=== PATIENT | female | born 1970 | race Two or more races ===

== ENCOUNTER 2022-08-31 19:38 | Emergency (ER) | payer OTHER ==
[~2022-08-31] VITALS: Ht 152.4 cm; Wt 54.4 kg
[2022-08-31] MEDS ORDERED: DICLOFENAC SODI75 MG PO (22:51)
== END 2022-08-31 23:49 | disposition home or self-care (01) ==
LOC: ER 19:38
DX: R10.2 Pelvic and perineal pain (principal); N83.291 Other ovarian cyst, right side

== ENCOUNTER 2023-05-24 14:56 | Emergency (ER) | payer OTHER ==
[~2023-05-24] VITALS: Ht 152.4 cm; Wt 61.7 kg
[~2023-05-24 14:56] MED LIST: DICLOFENAC SODI75 MG PO
[2023-05-24] MEDS ORDERED: RELAFEN DS1000 MG PO (20:50)
== END 2023-05-24 21:13 | disposition home or self-care (01) ==
LOC: ER 14:56
DX: M54.6 Pain in thoracic spine (principal)

== ENCOUNTER 2023-06-06 09:40 | Emergency (ER) | payer OTHER ==
[~2023-06-06] VITALS: Ht 152.4 cm; Wt 62.1 kg
[~2023-06-06 09:40] MED LIST changes: +RELAFEN DS1000 MG PO
[2023-06-06] MEDS ORDERED: 0.9 % SODIUM CHLORIDE 1,000 ML IV STA (10:36)
[2023-06-06] MEDS ORDERED: ONDANSETRON HCL 2 MG/ML VIAL IV ONE (10:45)
[2023-06-06 11:42] LABS: HEMATOCRIT 35.9 % (36.0-45.00); HEMOGLOBIN 12.3 g/dL (12.0-15.00); MEAN CELL VOLUME 78.8 fL (80.00-100.00); MEAN CORPUSCULAR HEMOGLOBIN 26.9 pg (27.00-32.0); MEAN CORPUSCULAR HGB CONC 34.1 g/dl (32.0-36.0); PLATELET COUNT 242 K/uL (150-450); RED BLOOD COUNT 4.56 M/uL (4.00-6.00); RED CELL DISTRIBUTION WIDTH 12.2 % (11.5-14.5)
[2023-06-06 12:03] LABS: URINE APPEARANCE Clear; URINE BILIRRUBIN Negative (NEGATIVE); URINE BLOOD Negative; URINE COLOR Yellow; URINE GLUCOSE Negative (NEGATIVE); URINE LEUKOCYTE Negative; URINE NITRATE Negative; URINE PROTEIN Negative (NEGATIVE); URINE UROBILINOGEN 0.2 E.U./dl
[2023-06-06 12:09] LABS: URINE BACTERIA 333.8 uL (0.0-1933); URINE EPITHELIAL CELLS 68.3 uL (0.0-38.8); URINE RBC 13.7 uL (0.0-20.8); URINE WBC 2.3 uL (0.0-23.2)
[2023-06-06 12:32] LABS: CALCIUM 8.8 mg/dL (8.5-10.1); CREATININE SERUM 0.56 mg/dL (0.55-1.02); GFR 114.13; POTASSIUM 4.07 mEq/L (3.5-5.1)
[2023-06-06 12:44] LABS: URINE CRYSTALS MODERATE /HPF
== END 2023-06-06 16:50 | disposition home or self-care (01) ==
LOC: ER 09:40
PROVIDERS: General Practice
DX: J45.909 Unspecified asthma, uncomplicated (principal); Z20.822 Contact with and (suspected) exposure to COVID-19